=== PATIENT | female | born 1935 | race Caucasian/White ===

== ENCOUNTER → 2016-12-01 | Outpatient (CLI) | payer MEDICARE, OTHER ==
[~2016-12-01] MED LIST: ACET1TAB12 PO; CHOL400T23 PO; GABA-215 PO; HYDR-3989 PO; LEVO50TA69 PO; METO50TA78 PO; NITR0.4T38 SL; OMEP40CA52 PO; SIMV80TA62 PO; WARF5TAB67 PO
--- NOTE | 2016-12-01 14:58 | DI ---
Indication: ITS.REASON: M25.561 Pain in right knee PROCEDURE: MRI KNEE RIGHT W/O CONTRAST: Encounter: Initial Comparison: None Technique: Multiplanar multisequence MR imaging of the right knee was performed without contrast. Findings: The lateral meniscus is intact. Horizontal tear of the superior surface of the posterior horn medial meniscus extending into the body. The ACL and PCL are intact. The MCL and lateral collateral ligament complex are intact. The extensor mechanism is normal. No acute fracture. Focal bone marrow edema in the medial femoral condyle and medial tibial plateau. Areas of cartilage loss in the medial compartment. Lateral compartment cartilage is maintained. Patellofemoral compartment shows full-thickness loss in the median ridge and lateral facet with areas of subchondral edema. Small joint effusion. No Marcial's cyst. Muscular signal intensity is within normal limits. Impression: 1. Medial meniscal tear. 2. Mild medial and patellofemoral compartment osteoarthritis. .
== END ==
LOC: IMA 13:24
PROVIDERS: ATTEND Family Medicine Sports Medicine
DX: N95.8 Other specified menopausal and perimenopausal disorders (principal); M85.851 Other specified disorders of bone density and structure, right thigh; S83.241A Other tear of medial meniscus, current injury, right knee, initial encounter; X58.XXXA Exposure to other specified factors, initial encounter; Y93.9 Activity, unspecified; Y92.9 Unspecified place or not applicable; Y99.9 Unspecified external cause status

== ENCOUNTER 2016-12-20 10:56 | Emergency (ER) | payer OTHER, MEDICARE ==
[~2016-12-20] VITALS: Ht 166.4 cm; Wt 90.2 kg
[2016-12-20 10:58] VITALS: TEMP 97.5; Ht 166.4 cm; Wt 90.2 kg
--- OUTSIDE RECORDS SUMMARY | 2016-12-20 11:01 | XMS REPORT | Continuity of Care Document ---
Author Author [facility] Organization [facility] Address Unknown Phone Unavailable Care Team Providers Care Hairspring Staker Name Role Phone FELIX WALTER DO Primary Care Physician [phone] Insurance Providers Guarantor Lucrecia Corral Talya Address [address] [place] [address] Email DENIED/NO TO PT [place] Payer Other A Insurance Policy Number [id number] Subscriber's Name Lucrecia Corral Relationship 18 Self Group Number [id number] Effective Date 09 Payer Medicare Policy Number [id number] Subscriber's Name Lucrecia Corral Relationship 18 Self Effective Date 99 Advance Directives Directive Response Recorded Date/Time Advanced Directives Type None 11/28/13 4:03pm Dr Carbajal Resuscitation Status Full Code 11/28/13 6:12am Resuscitation Documents on File No 11/28/13 4:03pm Chief Complaint and Reason for Visit Chief Complaint Lower Extremity Problem Reason for Visit Right medial knee pain Problems Past Problems Medical Problem Onset Date Pain, dental Unknown Right medial knee pain Unknown Medications Current Home Medications Medication Dose Units Route Directions Days Qty Instructions Start Date Acetaminophen With Codeine (Tylenol With Codeine #3 Tablet) 300-30 Tablet 1-2 Tab Oral Every 4-6 Hours Prn as needed for Pain 20 Tablet 05/25/16 Acetaminophen/Hydrocodone Bitart ([place] 5-325 Tablet) 5-325 Tablet 1 Tab Oral Every 6 Hr Prn as needed for Pain 2 Days [address] Se [facility] [address] [place] [address] 11/26/16 Cholecalciferol (Vitamin D3) (Vitamin D-400) 400 Unit Tablet 400 Unit Oral Daily 05/31/12 Gabapentin 300 Mg Capsule 300 Mg Oral Twice A Day 11/27/13 Levothyroxine Sodium (Synthroid) 50 Mcg Tablet 50 Mcg Oral Daily 05/31/12 Metoprolol Tartrate (Lopressor) 50 Mg Tablet 50 Mg Oral Twice A Day 05/31/12 Nitroglycerin 0.4 Mg Tab.subl 0.4 Mg Sublingual As Needed Omeprazole [address] Hernandez Tab Oral Daily 90 05/10/16 Simvastatin 80 Mg Tablet 80 Mg Oral Daily 05/31/12 Warfarin Sodium (Coumadin) 5 Mg Tablet 6 Mg Oral Daily 05/31/12 Past Home Medications Medication Directions Ordered Status Flax Seed , 1000 Mg 05/31/12 Discontinued Social History Social History Problem Response Recorded Date/Time Onset Date Status Chewing Tobacco Status No 11/28/2013 8:34am Not Applicable Not Applicable Hx Substance Use No 05/10/2016 10:49am Not Applicable Not Applicable Hx Alcohol Use No 05/10/2016 10:49am Not Applicable Not Applicable Has the pt used tobacco in the last 12 months No 05/10/2016 10:49am Not Applicable Not Applicable Query Response Start Date Stop Date Smoking Status Never smoker Hospital Discharge Instructions No hospital discharge instructions. Plan of Care Discharge Date 11/26/16 5:38pm Disposition 01 DISCHARGED HOME, SELF-CARE Condition at Discharge Stable Instructions/Education Provided Knee Pain (ED) RICE Therapy (ED) Prescriptions See Medication Section Referrals FELIX WALTER DO Address: [address] [place] [address] Additional Instructions/Education Use [place] as needed for pain. Avoid walking and stairs for now. See Dr Jenkins on Monday, Functional Status No functional status results. Allergies, Adverse Reactions, Alerts Allergen Type Severity Reaction Status Last Updated Aspirin Allergy Unknown Active 11/26/16 Immunizations Query Response on File Recorded Date/Time Hx Influenza Vaccination Y MAY 2016 05/10/16 10:49am Hx Pneumococcal Vaccination Y 2009 Dr Ye has info 05/10/16 10:49am Hx Influenza Vaccination Y MAY 2016 05/10/16 10:49am Vital Signs Acute Vital Signs Vital Response Date/Time Temperature (Fahrenheit) 96.9 deg F (96.8 - 99.1) 11/26/2016 5:01pm Temperature (Calculated Celsius) 36.90522 degrees C (36.0 - 37.3) 11/26/2016 5:01pm Pulse Rate (adult) 75 bpm (60 - 100) 11/26/2016 5:01pm Respiratory Rate 16 breaths/min (10 - 20) 11/26/2016 5:01pm O2 Sat by Pulse Oximetry 97 % (90 - 100) 11/26/2016 5:01pm Blood Pressure 147/84 mm Hg 11/26/2016 5:01pm Height (Inches) 64.00 inches 11/26/2016 5:01pm Weight (Kilograms) 89.600 kg 11/26/2016 5:01pm Body Mass Index (BMI) 33.0 11/26/2016 5:01pm Results No known relevant diagnostic tests, laboratory data and/or discharge summary. Procedures No known history of procedures. Encounters Encounter Location Arrival/Admit Date Discharge/Depart Date Attending Provider Departed Emergency Room [facility] 11/26/16 4:47pm 11/26/16 5: 38pm TAMIR ACKERMAN APRN Recent Diagnosis
--- OUTSIDE RECORDS SUMMARY | 2016-12-20 11:02 | XMS REPORT | Continuity of Care Document ---
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 Visit Date/Time Discharge Status Pt. Type Provider Facility Loc./Unit Complaint [id number] 10/04/2012 11:30:00 2012 23:59:59 CLS Outpatient Aguila Vázquez MD [facility] [id number] 10/04/2012 11:00:00 2012 23:59:59 CLS Outpatient Aguila Vázquez MD [facility]
--- NOTE | 2016-12-20 11:10 | ERPDOC ---
Departure Disposition Decision Date: December 20, 2016 Disposition Decision Time: 12:02 Disposition: 01 DISCHARGED HOME, SELF-CARE Impression Impression Impression: Primary Impression: Hip pain Qualified Codes: M25.551 - Pain in right hip Additional Impression: Fall Qualified Codes: W19.XXXA - Unspecified fall, initial encounter Severity: Moderate Condition: Improved Seen By: Physician only Referrals: FELIX WALTER DO (Family) 1 Week Patient Instructions: Hip Pain (ED) Problems/Meds/Labs Reviewed?: Yes Medications reviewed and manag: Yes Additional Instructions: You have hip pain and knee pain after a fall. Take naproxen, the muscle relaxer , and use ice/heat for pain and stiffness. Follow up with your doctor this next week. Follow up care ordered?: Yes Mental Status: Alert, Oriented Scripts Cyclobenzaprine HCl (Cyclobenzaprine HCl) 10 Mg Tablet 10 MG PO TID Y for MUSCLE SPASM, #40 TAB 0 Refills Prov: NOVEMBERDELMAR DO 12/20/16 HPI - Hip Pain General Chief Complaint: Fall Stated Complaint: FALL, RT HIP PAIN Time Seen by Provider: 11:09 Source: patient Exam Limitations: no limitations HPI - Hip Pain Initial Comments 81yo woman presents to the ER today with right hip pain. Pt fell down at a local restaurant; now has right hip pain. Pt recently tore a meniscus - ortho recommended not doing surgery, but pt c/o not getting any better. Occurred At: other Onset: Rapid Duration: 1/2 hour Pain Scale: Now & Worst: 5/10 Severity: moderate Location: hip (R) Method of Injury: fell Modifying Factors: IMPROVES WITH: cold therapy, immobilization, pain medication , WORSE WITH: jarring, movement Allergies: Coded Allergies: aspirin (Verified Allergy, Unknown, 12/20/16) Past History Past Medical History Metabolic: hypercholesterolemia, hypertension, hypothyroidism Cardiac: A-fib, CAD Musculoskeletal: back pain Family History Family PMH: FOUND: cancer Vaccines Hx Influenza Vaccination: Yes (MAY 2016) Hx Pneumococcal Vaccination: Yes (2009 Dr Ye has info) Social History Substance Use Type: does not use Review of Systems Musculoskeletal General: joint pain, DENIES: joint swelling All other Systems All Other Systems: Reviewed and Negative Physical Exam General General Nourishment: well nourished, well developed, appears stated age, no acute distress, adult, obese General Body Habitus: well groomed Vitals and Pain First Documented Vital Signs Date Time Temp Pulse Resp B/P Pulse Ox O2 Delivery O2 Flow Rate FiO2 12/20/16 10:58 97.5 90 20 174/82 98 Room Air Weight: Kilograms: Height (feet): 5 Height (inches): 64.00 Triage Pain Scale: RN VS reviewed by Provider: Yes Musculoskeletal (brief) Musculoskeletal Brief: FOUND: spasm, tenderness, NOT FOUND: deformity, loss of motion Supervisory Exam Head: atraumatic Eyes: PERRL Nares: no exudate Neck: trachea midline Chest: symmetric Abdomen: non-distended Musculoskeletal: no deformity or atrophy Neurological: no abnormal movements Skin: pink, dry Psychological: alert, appropriate Differential Diagnoses Considering: Bursitis, Fracture, Sciatica, Strain, Sprain Progress Results/Orders Orders Procedure Category Date Status Time Pelvis W/2 View Rt Hip RAD 12/20/16 Resulted 11:09 Cyclobenzaprine PHA 12/20/16 Complete (Flexeril) 12:00 Naproxen (Naprosyn PHA 12/20/16 Complete 500mg) 12:00 Medications Current ED Medications Cyclobenzaprine HCl (Flexeril) 10 mg O ONCE PO Last administered on 12/20/16t 12:09; Start 12/20/16 at 12:00; Stop 12/20/16 at 12:01; Status DC Naproxen (NAPROSYN 500mg) 500 mg O ONCE PO Last administered on 12/20/16t 12: 10; Start 12/20/16 at 12:00; Stop 12/20/16 at 12:01; Status DC Progress Progress 81yo woman without fx or dislocation. Discussed tx for muscle strain/meniscus tear/hematoma. Will give MR and NSAID. F/u with PCM as outpt. Pt voiced understanding of dx, prognosis, tx, and f/u need. Xray Xray : Xray: Hip R Interpretation: Normal, Reviewed Written Report DELMAR LACY DO December 20, 2016 11:10
--- OUTSIDE RECORDS SUMMARY | 2016-12-20 11:20 | XMS REPORT | Continuity of Care Document ---
Author Author [facility] Organization [facility] Address Unknown Phone Unavailable Allergies Medications Problems [...] Status Pt. Type Provider Facility Loc./Unit Complaint [id number] 10/04/2012 11:30:00 2012 23:59:59 CLS Outpatient Aguila Vázquez MD [facility] on [facility] [id number] 10/04/2012 11:00:00 2012 23:59:59 CLS Outpatient Aguila Vázquez MD [facility] on [facility]
--- NOTE | 2016-12-20 11:23 | NUR ---
RADIOLOGY PT TO RADIOLOGY [facility].
[2016-12-20] MEDS ORDERED: WARF4TAB6 PO ×2 (11:28)
[2016-12-20] MEDS ORDERED: METO25TA6 PO (11:28)
--- NOTE | 2016-12-20 11:34 | NUR ---
RADIOLOGY PT RETURNED.
--- NOTE | 2016-12-20 11:40 | DI ---
Indication: ITS.REASON: Fall; hip pain PROCEDURE: PELVIS W/2 VIEW RT HIP: Encounter: Initial Comparison: None Findings: There is no acute fracture, dislocation or malalignment identified. Degenerative change in the lower lumbar spine. Arterial vascular calcifications. Mild joint space narrowing in both hips. Impression: No acute osseous abnormality. .
[2016-12-20] MEDS ORDERED: NAPROXEN 500 MG TABLET PO ONE (12:00)
[2016-12-20] MEDS ORDERED: CYCLOBENZAPRINE 10 MG TABLET PO ONE (12:00)
--- NOTE | 2016-12-20 12:10 | NUR ---
MEDICATIONS FLEXERIL 10MG AND NAPROXEN 500MG PO ADMINISTERED. PT REPORTS SHE IS ABLE TO TAKE ALEVE WITHOUT ANY REACTIONS
[2016-12-20] MEDS ORDERED: CYCL-375 PO (12:12)
[2016-12-20 12:16] VITALS: BP 169/82; PULSE 75; RESP 18; O2SAT 98
--- NOTE | 2016-12-20 12:16 | NUR ---
DEPART PT ASSISTED TO WC. PT TAKEN TO LOBBY TO WAIT FOR RIDE, ACCOMPANIED BY SISTER.
== END 2016-12-20 12:16 | disposition home or self-care (01) ==
LOC: ED 10:56
DX: M25.551 Pain in right hip (principal); W19.XXXA Unspecified fall, initial encounter; Y93.9 Activity, unspecified; Y92.511 Restaurant or cafe as the place of occurrence of the external cause; Y99.8 Other external cause status